=== PATIENT | female | born 1985 | race Caucasian/White ===

== ENCOUNTER 2017-05-31 12:13 | Emergency (ER) | payer OTHER, SELFPAY ==
[2017-05-31 13:16] LABS: #Basophils 0.1 thou/uL (0.0-0.2); #Eosinphils 0.1 thou/uL (0.0-0.7); #Monocytes 0.5 thou/uL (0.11-0.59); %Basophils 0.6 % (0.0-1.0); %Eosinophils 0.8 % (0.0-10.0); %Lymphocytes 28.5 % (21.0-51.0); %Monocytes 4.8 % (0.0-10.0); %Neutrophils 65.3 % (42.0-75.0); Hemoglobin 14.5 g/dL (12.0-16.0); Mean Corpuscular HGB CONC 34.4 g/dL (32.0-36.0); Mean Corpuscular Hemoglobin 29.7 pg (27.0-31.0); Mean Corpuscular Volume 86.6 fl (81.0-99.0); Mean Platelet Volume 7.8 fL (7.4-10.4); Platelet Count 228 thou/uL (130-400); RBC Distribution Width 11.6 % (11.5-14.5); Red Blood Cell (RBC) Count 4.89 mill/uL (4.20-5.40); White Blood Cell (WBC) Count 10.7 thou/uL (4.8-10.8)
[2017-05-31 13:34] LABS: Bilirubin Negative (Negative); Blood, Urine Negative (Negative); Clarity CLEAR (Clear); Glucose, Urine (Dipstick) Negative (Negative); Leukocyte Large (Negative); Nitrite Negative (Negative); Protein, Urine (Dipstick) Negative (Neg-Trace); Specific Gravity, Urine 1.009 (1.002-1.036); Urobilinogen 0.2 mg/dL (0.2-1.0); pH, Urine 7.5 (5.0-9.0)
[2017-05-31 13:38] LABS: Bacteria/HPF 1+ HPF (None Seen); Hyaline Casts/LPF 0-3 HYALINE CAST LPF (0-3 Hyaline); Pathc Cast-AUWi Flag 0.27 (0-2.49); RBC/HPF 0-3 HPF (0-3)
[2017-05-31 13:38] LABS: BHCG - Serum Negative (NEGATIVE); Pregs Control Background? CLEAR/WHITE (CLR/WHITE); Pregs Control Bar Appear? YES (CONTROL BAR)
[2017-05-31 13:46] LABS: ALT (SGPT) 40 U/L (8-55); AST (SGOT) 20 U/L (5-34); Albumin 4.2 g/dL (3.5-5.0); Alkaline Phosphatase 104 U/L (40-150); Anion Gap 9 mmol/L (10-20); BUN (Urea Nitrogen) 9 mg/dL (7.0-18.7); Bilirubin, Total 0.2 mg/dL (0.2-1.2); Calc. Creatinine Clearance 0 mL/min (70-130); Calcium 9.5 mg/dL (7.8-10.44); Carbon Dioxide 27 mmol/L (22-29); Chloride 107 mmol/L (98-107); Dilantin 2.8 ug/mL (10.0-20.0); Estimated GFR-MDRD 82; Globulin 2.8 g/dL (2.4-3.5); Glucose 86 mg/dL (70-105); Lipase 14 U/L (8-78); Potassium 3.9 mmol/L (3.5-5.1); Sodium 139 mmol/L (136-145)
== END 2017-05-31 14:21 | disposition home or self-care (01) ==
LOC: ERS 12:13
DX: G43.909 Migraine, unspecified, not intractable, without status migrainosus (principal); N39.0 Urinary tract infection, site not specified; G40.909 Epilepsy, unspecified, not intractable, without status epilepticus; F17.210 Nicotine dependence, cigarettes, uncomplicated; Z79.899 Other long term (current) drug therapy
CPT/HCPCS: 36415; 80053; 80185; 81003; 81015; 83690; 84146; 84703; 85025; 87086; 99284